=== PATIENT | female | born 1960 | race Caucasian/White ===

== ENCOUNTER 2019-11-25 09:36 | Inpatient (IN) | payer OTHER ==
[~2019-11-25] VITALS: Ht 167.6 cm; Wt 129.3 kg
[~2019-11-25 09:36] MED LIST: CARVEDILOL12.5 MG PO; CLONAZEPAM 0.50.5 M1 PO; EFFEXOR XR150 MG PO; LISINOPRIL-HCT1 EAC1 PO; SONATA5 M1 PO
[2019-11-25 10:26] VITALS: BP 148/97
[2019-11-25 10:36] LABS: HEMATOCRIT 42.5 % (37.0-47.0); HEMOGLOBIN 14.4 gm/dL (12.0-15.0); MCH 30.6 pg (26.0-34.0); MCHC 33.9 g/dL (28.0-37.0); MCV 90.3 fL (80.0-100.0); RBC 4.71 mil/uL (4.20-5.00); RDW 13.9 % (10.5-14.5); WBC 6.4 thou/uL (4.0-11.0)
[2019-11-25 10:53] LABS: CALCIUM 8.8 mg/dL (8.5-10.1); CREATININE 0.9 mg/dL (0.6-1.0); POTASSIUM 3.4 mmol/L (3.5-5.1)
[2019-11-25 10:59] LABS: ALBUMIN 3.7 g/dL (3.4-5.0); TOTAL BILIRUBIN 0.9 mg/dL (0.2-1.0); TOTAL PROTEIN 7.2 g/dL (6.4-8.2)
[2019-11-25 17:29] VITALS: BP 127/93
--- NOTE | 2019-11-25 18:57 | NUR ---
59 YO FEMALE ADMITTED FROM PACU TO 443. IV INFUSING FLUIDS IN R WRIST W/O COMPS. LAP SITES TO ABD ARE C/D/I WITH DERMABOND. AMBULATING W/O ASSIAT IN ROOM. BOWEL SOUNDS ARE HYPO. CALL LIGHT W/I REACH. WILL CONT POC.
[2019-11-25 20:35] VITALS: BP 155/95
[2019-11-26] VITALS: BP 133/103
[2019-11-26 00:07] LABS: GLYCOHEMOGLOBIN (HGB A1C) 5.8 % (4.8-5.6)
[2019-11-26 02:30] VITALS: BP 149/99
--- NOTE | 2019-11-26 04:10 | NUR ---
ASSESSED AT START OF SHIFT 1900 PT RESTING IN BED. IV INTACT AND FLUIDS INFUISING. UP ADLIB TO THE BATHROOM AND AMBULATING WELL. NOW ON CLEAR LIQUID. C/O OF PAIN AND NAUSEA. MORPHINE AND ZOFRAN GIVENX1. SCD'S IN PLACE AND 4 LAP SITES INTACT WITH DERMABOUND. CALL LIGHT IN REACH AND WILL CONT WITH POC TILL EOS.
[2019-11-26 08:40] VITALS: BP 153/103
--- NOTE | 2019-11-26 09:39 | NUR ---
ORDERS RECEIVED FOR EVAL AND TREAT. SPOKE WITH Pt WHO STATES SHE IS ALREADY UP AD DOMONIQUE. OBSERVED HER STAND AND AMBULATE IN HALLS PUSHING HER IV POLE. Pt IS SAFE UP AD DOMONIQUE. Pt DECLINING A FORMAL P.T. EVAL
[2019-11-26] MEDS ORDERED: HYDROCODONE-ACE15 ML PO (11:19)
[2019-11-26 11:56] VITALS: BP 153/103
--- NOTE | 2019-11-26 13:00 | NUR ---
ASSESSMENTS DOCUMENTED. LAPROSCOPIC SITES ARE C/D/I, NO S/S OF BLEEDING OR INFECTION. PT ABLE TO AMBULATE W/O ASSISTANCE. NO BM TODAY. TOLERATING CL DIET. PIV DC'D PRIOR TO DISCHARGE. PT PICKED UP BY DAUGHTER.
--- NOTE | 2019-11-29 17:07 | PATH ---
[facility] [address] [place] [address] PATHOLOGY RPT PROCEDURE Name: TIFFANI VILLALTA Room #: 443-P [facility] IN M.R.#: [id number] Admission: 11/25/19 Date of : 62 Discharge: 11/26/19 Report #: [id number] Path Case #: [id number] [facility] Accession Number: [id number] . 01 Material submitted: . stomach - SLEEVE GASTRECTOMY . 01 Clinical history: . Morbid obesity, MELINA, DMII . 02 Diagnosis: Stomach, laparoscopic sleeve gastrectomy: - No significant diagnostic abnormalities present, history of morbid obesity. (IUV:candido; 11/29/2019) QMS 11/29/2019 1539 Local . 02 Electronically signed: . Yazmin Arredondo MD, Pathologist NPI- [id number] . 01 Gross description: . The specimen is received in formalin, labeled "Vogt, Tiffani, sleeve gastrectomy" and consists of a crescent-shaped partial gastrectomy specimen measuring 21.8 cm in length and up to 3.7 cm in diameter. The serosa is smooth pink-snow to focally hemorrhagic. Opening reveals a pink-snow mucosa with no gross lesions. Water Resources Technical Officer sections are submitted in A1. (SDY; 11/26/2019) SYU/SYU 11/26/2019 1452 Local . 02 Pathologist provided ICD-10: E66.01 . 02 CPT . 991121 Specimen Comment: A courtesy copy of this report has been sent to [phone] Specimen Comment: Report sent to Performed at: [address], [place], [place] [id number] MD Matt Mcknight MD Phone: [phone] Performed at: [address], [place] [id number] MD Yazmin Arredondo MD Phone: [phone]
--- NOTE | 2019-12-06 07:46 | O ---
[facility] [place] [address] OPERATIVE REPORT Name: RHINA VILLALTA Room #: 443-P [facility] IN M.R.#: [id number] Admission: 11/25/19 Attend Phys: Jimmy Turcios MD Discharge: 11/26/19 Date of : 62 Report #: [id number] THIS REPORT FOR: cc: EDIN - [place] family physician/PCP EDIN - [place] family physician/PCP Jimmy Turcios MD ~ CC: EDIN physician/PCP Jimmy Turcios DATE OF SERVICE: 11/25/2019 PREOPERATIVE DIAGNOSES: 1. Morbid obesity. 2. Hypertension. 3. Gastroesophageal reflux disease. 4. Sleep apnea. POSTOPERATIVE DIAGNOSES: 1. Morbid obesity. 2. Hypertension. 3. Gastroesophageal reflux disease. 4. Sleep apnea. OPERATIVE PROCEDURE DONE: Laparoscopic vertical sleeve gastrectomy. OPERATING SURGEON: Jimmy Turcios MD INDICATIONS FOR THE PROCEDURE: The patient is a 59-year-old female who presented with complaints of features of morbid obesity with the above listed comorbidities. She was noted to have a weight of ____ pounds with a BMI of 47 with the above listed comorbidities. The patient was advised laparoscopic vertical sleeve gastrectomy and possible hiatal hernia repair. The patient showed understanding and agreed to proceed. DESCRIPTION OF PROCEDURE: After explaining to the patient in detail and informed consent was obtained, the patient was identified in the preoperative holding area. The patient was transferred to the operating room and was placed in supine position. Sequential compressive devices were placed for DVT prophylaxis. Preoperative antibiotics were given. After induction of anesthesia, the abdomen was prepped and draped in a sterile fashion Through a left upper quadrant 1 cm incision and using Optiview technique, peritoneal cavity was entered and pneumoperitoneum was created. Thereafter, under direct vision, another 5 mm trocar was placed in the left mid abdomen, another 15 mm trocar was placed in the right mid abdomen, another 5 mm trocar was placed in the right subcostal region and through a 1 cm incision in the epigastrium, a Zoie retractor was introduced and the left lobe of the liver was retracted. [address] [address] OPERATIVE REPORT Name: RHINA VILLALTA Room #: 443-P [facility] IN M.R.#: [id number] Admission: 11/25/19 Attend Phys: Jimmy Turcios MD Discharge: 11/26/19 Date of : 62 Report #: [id number] Upon initial inspection, there was no evidence to suggest a hiatal hernia. I started to take down the gastroepiploic vessels using EnSeal. This was continued superiorly. The short gastric vessels were taken down. The gastrophrenic ligament was divided and the angle of His was mobilized. Distally the gastroepiploic vessels were taken down up to about 4 cm proximal to the pylorus. At this point, a 36-English orogastric ViSiGi tube was inserted into the stomach and stomach was suctioned out. This was placed along the lesser curve of the stomach. Stomach was then divided in a vertical fashion with multiple Endo-DALJIT [place] staplers, 2 green loads and multiple gold loads were used to divide the stomach in a vertical fashion to create a loose sleeve around this 36-English bougie. Absolute hemostasis was ensured. Thorough saline irrigation was given. Approximately about 10 mL of lidocaine and Marcaine mix was instilled under the left hemidiaphragm. The sleeve gastrectomy specimen and the Zoie retractor was removed. The incisions are closed with 4-0 Monocryl. Dermabond was applied. The patient was stable at the end of the procedure. The patient was awoken from anesthesia and was transferred to the recovery room in stable condition. ESTIMATED BLOOD LOSS: Approximately 20 mL. CONDITION OF THE PATIENT: Stable. FLUIDS GIVEN: Per anesthesia notes. SPECIMEN SENT: Sleeve gastrectomy specimen. COMPLICATIONS: None. ANESTHESIA: General anesthesia. <ELECTRONICALLY SIGNED> By: Jimmy Turcios MD 12/06/19 0746 1310 1321 Jimmy Turcios MD /nt
== END 2019-11-26 12:30 | disposition home or self-care (01) | DRG 621 ==
LOC: TBA 09:36 → 4S 09:36 → PRE 09:59 → 4S 14:31
PROVIDERS: ADMIT Surgery; ATTEND Surgery
PROC: 0DB64Z3 Excision of Stomach, Percutaneous Endoscopic Approach, Vertical (ICD-10-PCS; principal; 2019-11-25)
DX: E66.01 Morbid (severe) obesity due to excess calories (principal); K21.9 Gastro-esophageal reflux disease without esophagitis; Z68.42 Body mass index [BMI] 45.0-49.9, adult; I10 Essential (primary) hypertension; Z20.828 Contact with and (suspected) exposure to other viral communicable diseases; G47.30 Sleep apnea, unspecified; Z88.5 Allergy status to narcotic agent; Z88.2 Allergy status to sulfonamides; Z79.899 Other long term (current) drug therapy
CPT/HCPCS: 10102; 50010; 50101; 50222; 50249; 50386; 50555; 50739; 50740; 51489; 52205; 52265; 53307; 53311; 54022; 54118; 56462; 56525; 56526; 57092; 62110; 62900; 70005